=== PATIENT | male | born 1960 | race Caucasian/White ===

== ENCOUNTER → 2016-12-01 | Outpatient (CLI) | payer OTHER | END | disposition home or self-care (01) | LOC: C.PATH 17:44 | PROVIDERS: ATTEND Dermatology | DX: L72.0 Epidermal cyst (principal) ==

== ENCOUNTER 2017-06-04 14:06 | Emergency (ER) | payer OTHER ==
[~2017-06-04] VITALS: Ht 180.3 cm; Wt 93.5 kg
[2017-06-04 14:14] VITALS: TEMP 36.8
[2017-06-04] MEDS ORDERED: ONDANSETRON INJ 2 MG/ML 2 ML VIAL IV STA (15:43)
[2017-06-04] MEDS ORDERED: SODIUM CHLORIDE 0.9% 1000ML 1,000 ML IV STA (15:43)
--- NOTE | 2017-06-04 15:53 | EMERGENCY ROOM VISIT NOTE ---
History Report prepared by Mary: Adalberto Lebron Under the Supervision of: Dr. German Alonso D.O. First contact with patient: 15:36 Chief Complaint: ABDOMINAL PAIN Stated Complaint: DIVERTICULITIS-CRAMPING LOWER AB, NAUSEA Nursing Triage Summary: Patient presents ambulatory to triage with c/o lower abdominal pain Patient states he had a history of diverticulitis about 20 years ago and this feels similarly Onset of abdominal pain about 24 hours ago Noted nausea, some diarrhea emesis after gatorade today History of Present Illness The patient is a 57 year old male who presents to the Emergency Room with complaints of constant lower abdominal pain for the past 24 hours. He currently rates his discomfort as a 4/10 in severity. The patient states that he is also having nausea, vomiting, and diarrhea that started three hours ago. He has a history of diverticulitis and a colon resection, and he notes that this pain feels similar to when he had diverticulitis. The patient states that he does not have any fever, chills, black stools, or bloody stools. He has no history of bowel obstructions. The patient states that he has taken 4 Gas X in the last 24 hours, and he states that he was recently on antibiotics and prednisone for a sinus infection. He is not currently on any blood thinners, and he denies any chronic medical problems. The patient states that he has not had any other surgeries other than the colon resection and a colostomy placement which has since been reversed. Source of History: patient Onset: 24 hours ago Position: abdomen (lower) Symptom Intensity: 4/10 Timing: constant Associated Symptoms: + nausea, + vomiting, + diarrhea, No fevers, No chills Review of Systems See HPI for pertinent positives & negatives. A total of 10 systems reviewed and were otherwise negative. Past Medical & Surgical Medical Problems: (1) History of diverticulitis Social History Smoking Status: Never Smoker Marital Status: Housing Status: lives with family Occupation Status: employed Current/Historical Medications Scheduled Atorvastatin (Lipitor), 20 MG PO DAILY Ciprofloxacin Hcl (Cipro), 500 MG PO BID Lisinopril (Zestril), 10 MG PO DAILY Metronidazole (Flagyl), 500 MG PO TID Ondasetron Odt (Zofran Odt), 4 MG SL Q6H Scheduled PRN Fexofenadine Hcl (Betsy Allergy), 1 TAB PO DAILY PRN for Seasonal Allergies Guaifenesin/Codeine (Robitussin-Ac Syrup), 10 ML PO Q4H PRN for Cough [Proair Hfa], 2 PUFF INH Q4 PRN for SOB/Wheezing Allergies Coded Allergies: No Known Allergies (Verified , 03/30/02) Physical Exam Vital Signs Date Time Temp Pulse Resp B/P (MAP) Pulse Ox O2 Delivery O2 Flow Rate FiO2 06/04/17 17:23 89 20 158/90 100 Room Air 06/04/17 16:15 92 16 142/100 96 Room Air 06/04/17 16:14 95 Room Air 06/04/17 14:14 36.8 113 16 138/86 95 Room Air Physical Exam GENERAL: Patient is awake, alert, and in no acute distress. Patient is resting comfortably and showing no signs of anxiety EYES: The conjunctivae are clear. The pupils are round and reactive. EARS, NOSE, MOUTH AND THROAT: The nose is without any evidence of any deformity. Mucous membranes are moist tongue is midline NECK: The neck is nontender and supple. RESPIRATORY: Normal respiratory effort is noted there is no evidence of wheezing rhonchi or rales CARDIOVASCULAR: Regular rate and rhythm noted there no murmurs rubs or gallops normal S1 normal S2 GASTROINTESTINAL: The abdomen is mildly distended but soft. There is left lower quadrant tenderness to palpation. No guarding or rigidity. BACK: No midline tenderness or or step-off noted range of motion in flexion extension as well as rotation no signs of muscle spasm noted MUSCULOSKELETAL/EXTREMITIES: There is no evidence of gross deformity full range of motion is noted in the hips and shoulders SKIN: There is no obvious evidence of any rash. There are no petechiae, pallor or cyanosis noted. NEUROLOGIC: Patient is awake alert and oriented x3 Medical Decision & Procedures ER Provider Diagnostic Interpretation: Radiology results as stated below per my review and radiologist interpretation: ABD/PELVIS IV CONTRAST ONLY CT DOSE: 525.38 mGy.cm HISTORY: Pain LLQ pain, hx of colon ressection TECHNIQUE: Multiaxial CT images of the abdomen and pelvis were performed following the use of intravenous contrast. A dose lowering technique was utilized adhering to the principles of ALARA. COMPARISON STUDY: None. FINDINGS: Lung bases are clear. Fatty infiltration of the liver. Gallstones within the gallbladder lumen. Spleen is uniform. Hiatal hernia with a small associated component of perigastric fat. No evidence for gastric distention. Kidneys enhance uniformly Prior partial colonic resection. Periumbilical hernia with a loop of bowel containment within the hernia. Considered nonobstructing. Moderate wall thickening of the proximal to mid sigmoid colon with moderate pericolonic infiltrative change. Suggestive of diverticulitis versus nonspecific colitis. There is no evidence for abscess or collection. There are again no obstructive changes. No evidence for pneumatosis. IMPRESSION: 1. Acute proximal to mid sigmoid diverticulitis. 2. Moderate pericolonic infiltrative change. 3. No evidence for abscess, collection or obstruction. 4. Additional incidental findings as noted. The above report was generated using voice recognition software. It may contain grammatical, syntax or spelling errors. Electronically signed by: Mateo Robbins M.D. 06/04/2017 4:46 PM Dictated Date/Time: 06/04/2017 4:43 PM Laboratory Results 06/04/17 16:00 Red Blood Count 5.04, Mean Corpuscular Volume 91.7, Mean Corpuscular Hemoglobin 31.2, Mean Corpuscular Hemoglobin Concent 34.0, Mean Platelet Volume 10.4, Neutrophils (%) (Auto) 80.4, Lymphocytes (%) (Auto) 11.2, Monocytes (%) (Auto) 7.2, Eosinophils (%) (Auto) 0.5, Basophils (%) (Auto) 0.2, Neutrophils # (Auto) 12.29, Lymphocytes # (Auto) 1.71, Monocytes # (Auto) 1.10, Eosinophils # (Auto) 0.07, Basophils # (Auto) 0.03 06/04/17 16:00 Test 06/04/17 16:00 06/04/17 16:09 06/04/17 17:30 White Blood Count 15.27 K/uL (4.8-10.8) Red Blood Count 5.04 M/uL (4.7-6.1) Hemoglobin 15.7 g/dL (14.0-18.0) Hematocrit 46.2 % (42-52) Mean Corpuscular Volume 91.7 fL (80-100) Mean Corpuscular Hemoglobin 31.2 pg (25-34) Mean Corpuscular Hemoglobin Concent 34.0 g/dl (32-36) Platelet Count 205 K/uL (130-400) Mean Platelet Volume 10.4 fL (7.4-10.4) Neutrophils (%) (Auto) 80.4 % Lymphocytes (%) (Auto) 11.2 % Monocytes (%) (Auto) 7.2 % Eosinophils (%) (Auto) 0.5 % Basophils (%) (Auto) 0.2 % Neutrophils # (Auto) 12.29 K/uL (1.4-6.5) Lymphocytes # (Auto) 1.71 K/uL (1.2-3.4) Monocytes # (Auto) 1.10 K/uL (0.11-0.59) Eosinophils # (Auto) 0.07 K/uL (0-0.5) Basophils # (Auto) 0.03 K/uL (0-0.2) RDW Standard Deviation 47.3 fL (36.4-46.3) RDW Coefficient of Variation 14.1 % (11.5-14.5) Immature Granulocyte % (Auto) 0.5 % Immature Granulocyte # (Auto) 0.07 K/uL (0.00-0.02) Est Creatinine Clear Calc Drug Dose 87.9 ml/min Estimated GFR () 88.2 Estimated GFR (Non- 76.1 BUN/Creatinine Ratio 11.9 (10-20) Calcium Level 9.7 mg/dl (8.5-10.1) Magnesium Level 2.3 mg/dl (1.8-2.4) Total Bilirubin 1.3 mg/dl (0.2-1) Direct Bilirubin 0.2 mg/dl (0-0.2) Aspartate Amino Transf (AST/SGOT) 18 U/L (15-37) Alanine Aminotransferase (ALT/SGPT) 51 U/L (12-78) Alkaline Phosphatase 61 U/L (45-117) Total Protein 8.4 gm/dl (6.4-8.2) Albumin 3.7 gm/dl (3.4-5.0) Thyroid Stimulating Hormone (TSH) 1.470 uIu/ml (0.300-4.500) Bedside Hemoglobin 16.3 g/dl (14.0-18.0) Bedside Hematocrit 48 % (42-52) Bedside Sodium 138 mEq/L (135-144) Bedside Potassium 3.8 mEq/L (3.3-5.0) Bedside Chloride 100 mEq/L (101-112) Bedside Total CO2 27 mEq/l (24-31) Anion Gap 16.0 mmol/L (16-25) Bedside Blood Urea Nitrogen 14 mg/dl (7-18) Bedside Creatinine 0.9 mg/dl (0.6-1.3) Bedside Glucose (other) 100 mg/dl (70-99) Bedside Ionized Calcium (Yenny) 1.19 mmol/l (1.12-1.32) Urine Color YELLOW Urine Appearance CLEAR (CLEAR) Urine pH 5.0 (4.5-7.5) Urine Specific [place] 1.027 (1.000-1.030) Urine Protein NEG (NEG) Urine Glucose (UA) NEG (NEG) Urine Ketones NEG (NEG) Urine Occult Blood NEG (NEG) Urine Nitrite NEG (NEG) Urine Bilirubin NEG (NEG) Urine Urobilinogen NEG (NEG) Urine Leukocyte Esterase NEG (NEG) Laboratory results per my review. Medications Administered Medications (Trade) Dose Ordered Sig/Domingo Route Start Time Stop Time Status Last Admin Dose Admin Ondansetron HCl (Zofran Inj) 4 mg NOW STAT IV 06/04/17 15:43 06/04/17 15:45 DC 06/04/17 16:21 4 MG Sodium Chloride 1,000 ml @ 999 mls/hr Q1H1M STAT IV 06/04/17 15:43 06/04/17 16:43 DC 06/04/17 16:21 999 MLS/HR Ciprofloxacin (Cipro Tab) 500 mg NOW STAT PO 06/04/17 17:03 06/04/17 17:04 DC 06/04/17 17:22 500 MG Metronidazole (Flagyl Tab) 500 mg NOW STAT PO 06/04/17 17:03 06/04/17 17:04 DC 06/04/17 17:22 500 MG ED Course 1536: The patient was evaluated in room B11. A complete history and physical examination were performed. 1543: NSS 1,000 ml @ 999 mls/hr IV, Zofran 4mg IV 1703: Flagyl 500mg PO, Cipro Tab 500mg PO 1717: Upon reevaluation, the patient is doing well. I discussed the results and treatment plan with him. He verbalized agreement of the treatment plan. He was discharged home. Medical Decision Differential diagnosis: Etiologies such as appendicitis, diverticulitis, PUD, biliary pathology, UTI, pancreatitis, obstruction, mesenteric ischemia, aortic pathology, infections, inflammatory bowel disease, renal colic, as well as others were entertained. Nursing notes reviewed. The patient is a 57-year-old male who presented to the emergency department for an evaluation of left lower quadrant abdominal pain. The patient has a history of diverticulitis and in fact had a very significant problem with diverticulitis. He had colon resection secondary to severe diverticulitis. The patient was found to have a physical exam consistent with diverticulitis. He had an elevated white blood cell count. He was treated with IV fluids and IV anti-medics. I discussed patient's laboratory and radiographic studies with him. His CT showed signs of diverticulitis but no signs of abscess or rupture. At this time I feel the patient can be managed with outpatient antibiotics. He was started on antibiotics in the emergency department. He was encouraged to drink plenty clear liquids and avoid any fatty spicy or fried foods. He is also encouraged to follow-up with his family doctor next week as scheduled but return to the emergency department immediately if symptoms worsen or signs of infection develop such as rigid abdomen severe pain high fever or if the need arises. Medication Reconcilliation Current Medication List: was personally reviewed by me Blood Pressure Screening Patient's blood pressure: Elevated blood pressure Blood pressure disposition: Elevated BP felt to be situational Impression Primary Impression: Diverticulitis Additional Impression: Abdominal pain, left lower quadrant Scribe Attestation The scribe's documentation has been prepared under my direction and personally reviewed by me in its entirety. I confirm that the note above accurately reflects all work, treatment, procedures, and medical decision making performed by me. Departure Information Dispostion Home / Self-Care Prescriptions Ondasetron Odt (ZOFRAN ODT) 4 Mg Tab 4 MG SL Q6H for Nausea, #15 TAB Prov: German Alonso, DO 06/04/17 Metronidazole (FLAGYL) 500 Mg Tab 500 MG PO TID, #30 TAB Prov: German Alonso, DO 06/04/17 Ciprofloxacin Hcl (CIPRO) 500 Mg Tab 500 MG PO BID, #20 TAB Prov: German Alonso, DO 06/04/17 Referrals Hiren, Edward R.,M.D. (PCP) Forms Call Back Authorization, HOME CARE DOCUMENTATION FORM, IMPORTANT VISIT INFORMATION Patient Instructions ED Diverticulitis, [facility] Additional Instructions Call your family doctor to schedule a follow-up appointment. Continue using Motrin and Tylenol as directed for pain. Drink plenty of clear liquids. Avoid any spicy fatty or fried foods. Return to the emergency department immediately if symptoms change worsen or the need arises. Avoid any alcoholic beverages while you are taking the antibiotics. Problem Qualifiers
[2017-06-04] MEDS ORDERED: OPTIRAY 320 IV PRN (16:00)
[2017-06-04 16:14] VITALS: O2SAT 95; Ht 180.3 cm; Wt 93.5 kg
[2017-06-04 16:32] LABS: BASO % 0.2 %; BASO ABS # 0.03 K/uL (0-0.2); EOS % 0.5 %; EOS ABS # 0.07 K/uL (0-0.5); HEMATOCRIT 46.2 % (42-52); HEMOGLOBIN 15.7 g/dL (14.0-18.0); IG# 0.07 K/uL (0.00-0.02); LYMPH % 11.2 %; LYMPH ABS # 1.71 K/uL (1.2-3.4); MEAN CELL VOLUME 91.7 fL (80-100); MEAN CORPUSCULAR HEMOGLOBIN 31.2 pg (25-34); MEAN PLATELET VOLUME 10.4 fL (7.4-10.4); MONO % 7.2 %; NEUT % 80.4 %; NEUT ABS # 12.29 K/uL (1.4-6.5); PLATELET COUNT 205 K/uL (130-400); RED CELL DISTRIBUTION WIDTH CV 14.1 % (11.5-14.5); RED CELL DISTRIBUTION WIDTH SD 47.3 fL (36.4-46.3); WHITE BLOOD COUNT 15.27 K/uL (4.8-10.8)
[2017-06-04 16:38] LABS: ISTAT CREATININE 0.9 mg/dl (0.6-1.3); ISTAT IONIZED CALCIUM 1.19 mmol/l (1.12-1.32); ISTAT POTASSIUM 3.8 mEq/L (3.3-5.0)
[2017-06-04] MEDS ORDERED: LISI-461 PO (16:43)
--- NOTE | 2017-06-04 16:47 | DIAGNOSTIC IMAGING REPORT ---
ABD/PELVIS IV CONTRAST ONLY CT DOSE: 525.38 mGy.cm HISTORY: Pain LLQ pain, hx of colon ressection TECHNIQUE: Multiaxial CT images of the abdomen and pelvis were performed following the use of intravenous contrast. A dose lowering technique was utilized adhering to the principles of ALARA. COMPARISON STUDY: None. FINDINGS: Lung bases are clear. Fatty infiltration of the liver. Gallstones within the gallbladder lumen. Spleen is uniform. Hiatal hernia with a small associated component of perigastric fat. No evidence for gastric distention. Kidneys enhance uniformly Prior partial colonic resection. Periumbilical hernia with a loop of bowel containment within the hernia. Considered nonobstructing. Moderate wall thickening of the proximal to mid sigmoid colon with moderate pericolonic infiltrative change. Suggestive of diverticulitis versus nonspecific colitis. There is no evidence for abscess or collection. There are again no obstructive changes. No evidence for pneumatosis. IMPRESSION: 1. Acute proximal to mid sigmoid diverticulitis. 2. Moderate pericolonic infiltrative change. 3. No evidence for abscess, collection or obstruction. 4. Additional incidental findings as noted. The above report was generated using voice recognition software. It may contain grammatical, syntax or spelling errors. Electronically signed by: Mateo Robbins M.D. 06/04/2017 4:46 PM Dictated Date/Time: 06/04/2017 4:43 PM
[2017-06-04] MEDS ORDERED: PROAIR HFA INH (16:48)
[2017-06-04] MEDS ORDERED: ATOR-22 PO (16:48)
[2017-06-04] MEDS ORDERED: FEXO1TAB49 PO (16:48)
[2017-06-04] MEDS ORDERED: GUAISYP4 PO (16:48)
[2017-06-04 16:59] LABS: ALBUMIN 3.7 gm/dl (3.4-5.0); CALCIUM 9.7 mg/dl (8.5-10.1); CREATININE 1.07 mg/dl (0.60-1.40); POTASSIUM 3.7 mmol/L (3.5-5.1)
[2017-06-04] MEDS ORDERED: METRONIDAZOLE 250 MG TAB PO STA (17:03)
[2017-06-04] MEDS ORDERED: CIPROFLOXACIN 500 MG TAB PO STA (17:03)
[2017-06-04 17:10] LABS: TOTAL PROTEIN 8.4 gm/dl (6.4-8.2)
[2017-06-04] MEDS ORDERED: ONDA4TAB10 SL (17:19)
[2017-06-04] MEDS ORDERED: CIPR-255 PO (17:19)
[2017-06-04] MEDS ORDERED: METR-162 PO (17:19)
[2017-06-04 17:23] VITALS: BP 158/90; PULSE 89; O2SAT 100
--- NOTE | 2017-06-04 17:51 | Pharmacy Progress Note ---
ED Pharmacist Progress Note Date of Service: Jun 04, 2017. Received call from outpatient pharmacist requesting confirmation it was OK to dispense both ciprofloxacin and ondansetron 2nd DDI increasing risk for QTc prolongation. No EKG this admission but pt does not have cardiac history. Discussed w Dr. Alonso - confirmed was OK to dispense both as-is.
== END 2017-06-04 17:39 | disposition home or self-care (01) ==
LOC: C.EDB 14:08
DX: K57.92 Diverticulitis of intestine, part unspecified, without perforation or abscess without bleeding (principal); D72.829 Elevated white blood cell count, unspecified; R03.0 Elevated blood-pressure reading, without diagnosis of hypertension; Z90.49 Acquired absence of other specified parts of digestive tract; Z79.899 Other long term (current) drug therapy